=== PATIENT | male | born 1990 | race Caucasian/White ===

== ENCOUNTER 2021-01-06 20:13 | Emergency (ER) | payer BC, OTHER ==
[~2021-01-06] VITALS: Ht 188 cm; Wt 104.3 kg
[2021-01-06 20:15] VITALS: BP 150/84
== END 2021-01-06 23:10 | disposition left against medical advice (07) ==
LOC: ER 20:13
DX: R21 Rash and other nonspecific skin eruption (principal); Z53.21 Procedure and treatment not carried out due to patient leaving prior to being seen by health care provider